=== PATIENT | female | born 1940 | race American Indian/Alaskan Native ===

== ENCOUNTER 2018-05-04 13:29 | Outpatient (CLI) | payer MEDICARE ==
--- NOTE | 2018-05-04 14:51 | XRay Report ---
XRAY RIGHT HIP TWO VIEWS: 05/04/18 13:29:00 CLINICAL: Right hip pain. FINDINGS: No fracture or dislocation.Mild arthritis with central joint space narrowing and mild superior acetabular eburnation. Minimal osteophyte formation. Similar but lesser changes in the left hip. The pelvic bones are intact. A left pelvic phlebolith. IMPRESSION: Mild arthritis.
--- NOTE | 2018-05-04 15:04 | XRay Report ---
XRAY LUMBAR SPINE THREE VIEWS: 05/04/18 13:29:00 CLINICAL: Right hip pain. COMPARISON: 07/19/14 FINDINGS: Grade I L4-5 spondylolisthesis with no pars defect. The rest of the bodies are normal alignment. Normal vertebral body height. Disc spaces are preserved. Very mild dextroscoliosis centered at L3-4. Moderate lower lumbar facet joint sclerosis. The pedicles are intact. No fracture. Normal soft tissues. IMPRESSION: Scoliosis, multilevel facet joint arthropathy and grade I L4-5 spondylolisthesis without significant change compared to the previous exam.
== END 2018-05-04 13:30 | disposition home or self-care (01) ==
LOC: SPVIMAG 13:29
DX: M16.11 Unilateral primary osteoarthritis, right hip (principal); M43.16 Spondylolisthesis, lumbar region; M41.86 Other forms of scoliosis, lumbar region
CPT/HCPCS: 72100